=== PATIENT | male | born 1950 | race Caucasian/White ===

== ENCOUNTER 2018-01-23 10:57 | Emergency (ER) | payer MEDICARE, BC ==
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
[2018-01-23] MEDS: Sodium Chloride 0.9% 1,000 ML IV ONE (11:34)
[2018-01-23 11:59] VITALS: BP 158/96
== END 2018-01-23 12:40 | disposition home or self-care (01) ==
LOC: LB.ED 10:57
DX: E86.0 Dehydration (principal); R42 Dizziness and giddiness; I10 Essential (primary) hypertension; K21.9 Gastro-esophageal reflux disease without esophagitis; Z79.899 Other long term (current) drug therapy; Z91.030 Bee allergy status
CPT/HCPCS: 36415; 80048; 84484; 84550; 85025; 93005; 96360; 96361; 99284-25; J7030

== ENCOUNTER 2020-01-04 20:01 | Emergency (ER) | payer MEDICARE, BC ==
[2020-01-04 20:18] VITALS: BP 148/103; PULSE 92
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
== END 2020-01-04 20:30 | disposition home or self-care (01) ==
LOC: LB.ED 20:01
DX: T78.3XXA Angioneurotic edema, initial encounter (principal); T46.4X5A Adverse effect of angiotensin-converting-enzyme inhibitors, initial encounter; I10 Essential (primary) hypertension; E78.00 Pure hypercholesterolemia, unspecified; J44.9 Chronic obstructive pulmonary disease, unspecified; K21.9 Gastro-esophageal reflux disease without esophagitis; Z87.891 Personal history of nicotine dependence; Z91.030 Bee allergy status; Z79.899 Other long term (current) drug therapy
CPT/HCPCS: 99282; 99283